=== PATIENT | male | born 1995 | race Caucasian/White ===

== ENCOUNTER 2018-01-03 18:43 | Emergency (ER) | payer SELFPAY ==
--- NOTE | 2018-01-03 21:24 | RAD ---
PA AND LATERAL OF THE CHEST: 01/03/18 INDICATION: History of chest pain. COMPARISON: None. FINDINGS: The lungs are hyperinflated but clear. The cardiomediastinal silhouette is within normal limits. No p leural effusion or pneumothorax is demonstrated. No acute osseous abnormality is noted. IMPRESSION: Hyperinflation but no additional acute abnormality. POS: [facility]
== END 2018-01-03 19:30 | disposition home or self-care (01) ==
LOC: SCSER 18:43
DX: M94.0 Chondrocostal junction syndrome [Tietze] (principal); F31.9 Bipolar disorder, unspecified
CPT/HCPCS: 71046